=== PATIENT | female | born 1975 | race Caucasian/White ===

== ENCOUNTER → 2018-05-25 | Outpatient (CLI) | payer BC, OTHER ==
[2018-05-25 14:11] LABS: BASOPHILS ABSOLUTE AUTO 0.03 K/mm3 (0.00-0.23); BASOPHILS PERCENT AUTO 0 % (0-2); EOSINOPHILS ABSOLUTE AUTO 0.23 K/mm3 (0.00-0.68); EOSINOPHILS PERCENT AUTO 3 % (0-6); Hematocrit 44.6 % (33.0-51.0); Hemoglobin 15.6 g/dL (11.5-16.0); IMMATURE GRAN ABSOLUTE AUTO 0.01 K/mm3 (0.00-0.10); IMMATURE GRAN PERCENT AUTO 0 % (0-1); LYMPHOCYTES ABSOLUTE AUTO 1.69 K/mm3 (0.84-5.20); LYMPHOCYTES PERCENT AUTO 24 % (21-46); MONOCYTES ABSOLUTE AUTO 0.52 K/mm3 (0.16-1.47); MONOCYTES PERCENT AUTO 7 % (4-13); Mean Corpuscular HGB 31.2 pg (26.0-34.0); Mean Corpuscular Volume 89 fL (80-100); Mean Platelet Volume 9.3 fL (9.1-12.4); NEUTROPHILS ABSOLUTE AUTO 4.72 K/mm3 (1.96-9.15); NEUTROPHILS PERCENT AUTO 66 % (41-73); Platelet Count 240 K/mm3 (150-400); RDW Standard Deviation 38.7 fL (35.1-46.3)
[2018-05-25 14:33] LABS: Alanine Aminotransfer (ALT/SGP 61 U/L (12-78); Alk Phos 99 U/L (40-126); Anion Gap 9 mmol/L (6-16); Aspartate Aminotrans (AST/SGOT 56 U/L (12-37); Bilirubin, Total 0.7 mg/dL (0.1-1.0); Blood Urea Nitrogen 5 mg/dL (8-24); Bun/Creatinine Ratio 6.3 (12.0-20.0); CO2, Blood 30 mmol/L (21-32); Calcium, Blood 8.9 mg/dL (8.5-10.1); Chloride, Blood 100 mmol/L (98-108); Creatinine, Blood 0.79 mg/dL (0.40-1.00); Globulin, Blood 4.1 g/dL (2.2-4.0); Glomerular Filtration Rate >60 (60-); Glucose, Blood 85 mg/dL (70-99); Potassium, Blood 2.8 mmol/L (3.5-5.5); Sodium, Blood 139 mmol/L (136-145); Total Protein, Blood 8.1 g/dL (6.4-8.2)
== END ==
LOC: LAB EV 14:04 → LAB SHORT 14:04
PROVIDERS: Nurse Practitioner
DX: R11.2 Nausea with vomiting, unspecified (principal)
CPT/HCPCS: 80053; 83690; 85025

== ENCOUNTER → 2019-08-20 | Outpatient (CLI) | payer BC, OTHER ==
[2019-08-22 15:07] LABS: HPV 16 Negative (Negative); HPV 18 Negative (Negative); HPV OTHER HR TYPES Negative (Negative)
== END | disposition home or self-care (01) ==
LOC: LAB 15:45 → LAB SHORT 15:45
PROVIDERS: Obstetrics & Gynecology
DX: Z01.419 Encounter for gynecological examination (general) (routine) without abnormal findings (principal); R30.9 Painful micturition, unspecified
CPT/HCPCS: 87086

== ENCOUNTER 2020-03-02 06:00 | Day surgery (SDC) | payer BC, OTHER ==
[~2020-03-02] VITALS: Ht 167 cm; Wt 94.2 kg
--- NOTE | 2020-03-02 07:10 | NUR ---
Ambulatory in Day Surgery History, Chart, Medications and Allergies reviewed before start of procedure.Patient confirms NPO status and agrees with scheduled surgery. Patient reports completing Chlorhexadine shower X2 prior to admission to hospital.Surgical site prepped with 2% Chlorhexidine cloth wipe.
[2020-03-02] MEDS ORDERED: OXYC5 PO (14:06)
--- NOTE | 2020-03-02 15:04 | NUR ---
PT HAS BEEN UP TO VOID X2, AMBULATED WITHOUT DIFFICULTY, REPORTS PAIN IS TOLERABLE WITH OXYCODONE, DENIES ANY NAUSEA, ABD LAP INCISIONS C/D/I, PERIPAD W/ VERY SCANT SS DRAINAGE, TOLERATING REGULAR FOOD FAIRLY WELL, DC INSTRUCTIONS GIVEN, VERBALIZED UNDERSTANDING, PT DC'D HOME WITH , RX FOR OXYCODONE GIVEN TO .
== END 2020-03-02 15:12 | disposition home or self-care (01) ==
LOC: ORD 06:00 → ORSCMMR 06:00 → ORD 07:30 → SURS 11:57 → ORD 15:12
PROVIDERS: Obstetrics & Gynecology
PROC: 0UT7FZZ Resection of Bilateral Fallopian Tubes, Via Natural or Artificial Opening With Percutaneous Endoscopic Assistance (ICD-10-PCS; principal; 2020-03-02 07:30)
PROC: 0UT9FZZ Resection of Uterus, Via Natural or Artificial Opening With Percutaneous Endoscopic Assistance (ICD-10-PCS; principal; 2020-03-02 07:30)
DX: N94.6 Dysmenorrhea, unspecified (principal); N92.0 Excessive and frequent menstruation with regular cycle; N84.1 Polyp of cervix uteri; N80.2 Endometriosis of fallopian tube; E66.9 Obesity, unspecified; Z68.33 Body mass index [BMI] 33.0-33.9, adult
CPT/HCPCS: 88307; A9270; J0330; J0690; J1885; J2060; J2250; J2405; J2704; J2710; J2765; J3010; J7120